=== PATIENT | female | born 1980 | race Asian ===

== ENCOUNTER 2018-08-14 11:38 | Emergency (ER) | payer OTHER, SELFPAY ==
[2018-08-14 11:40] VITALS: BP 128/87; PULSE 81; RESP 18; TEMP 36.6; O2SAT 98
[2018-08-14 12:00] VITALS: BP 133/84; PULSE 84; O2SAT 100
--- NOTE | 2018-08-14 12:06 | ED.ABDPAIN ---
HPI - Abdominal Pain <Izabela Dubon PA-C - Last Filed: 08/14/18 19:11> General Chief Complaint: Abdominal Pain Stated Complaint: States abdominal pain x3days, throat constricted Time Seen by Provider: 08/14/18 11:53 Source: patient and family Mode of arrival: ambulatory Limitations: no limitations History of Present Illness HPI narrative: This 38-year-old female comes to ED due to 3 day history of mid upper abdominal pain. She awoke with it on morning. She states it is there constantly, but gets worse after eating regardless of type of food, also worse if she is walking around for awhile. It improves if she sits for a little while. She denies any change with drinking fluids. She states the worse bouts of pain can also occur when she is lying down. She denies any radiation of pain except feels like sometimes it goes through to her back. She denies any chest pain or dyspnea. She has not had any recent illness or cough, no fever, chills, sweats. She denies any nausea or vomiting. She denies any urinary symptoms or hematuria. She denies any bowel changes or blood in the stools. She denies any possibility of . She had panendoscopy 4 years ago for anemia and syncope, does have some chronic abdominal/bladder pain ?painful bladder syndrome?, pain like this before. Pain is not worse today, came in because a family member advised. She is eating and drinking normally Related Data Previous Rx's Medication Instructions Recorded omeprazole 40 mg PO DAILY 14 Days #14 cap 08/14/18 Allergies Allergy/AdvReac Type Severity Reaction Status Date / Time No Known Drug Allergies Allergy Verified 08/14/18 12:39 Review of Systems <Izabela Dubon PA-C - Last Filed: 08/14/18 19:11> Review of Systems ROS Unobtainable: All systems reviewed & are unremarkable except as noted in HPI and below PFSH <Izabela Dubon PA-C - Last Filed: 08/14/18 19:11> Medical History (Updated 08/14/18 @ 14:19 by Izabela Dubon PA-C) Anxiety disorder (Chronic) Chronic bladder pain (Chronic) History of anemia (Chronic) Seasonal allergies (Chronic) History of syncope (Resolved) Surgical History (Updated 08/14/18 @ 12:30 by Izabela Dubon PA-C) S/P colonoscopy (Resolved) Status post endoscopy (Resolved) Social History Smoking Status: Never smoker Social History Smoking Status: Never smoker Exam <Izabela Dubon PA-C - Last Filed: 08/14/18 19:11> Narrative Exam Narrative: GENERAL APPEARANCE: Patient sitting comfortably, in no distress. HEENT: PERRL, EOMI, no scleral icterus, conjunctivae pink NECK: Supple LUNGS: Clear to auscultation bilaterally. HEART: Rate and rhythm regular, normal S1 and S2, no S3 or S4. ABDOMEN: Soft, nondistended, bowel sounds present x 4 quadrants, no masses palpable, no hepatosplenomegaly. mild mid epigastric tenderness without guarding or rebound. no tenderness elsewhere. No CVAT EXTREMITIES: No edema, no cyanosis DERMATOLOGIC: No jaundice or exanthem NEUROLOGIC: Alert and oriented with normal speech and coordination Initial Vital Signs Initial Vital Signs: Vital Signs Temperature 97.8 F 08/14/18 11:40 Pulse Rate 81 08/14/18 11:40 Respiratory Rate 18 08/14/18 11:40 Blood Pressure 128/87 08/14/18 11:40 Pulse Oximetry 98 08/14/18 11:40 <Glenny Martines DO - Last Filed: 08/16/18 23:52> Initial Vital Signs Initial Vital Signs: Vital Signs Temperature 97.8 F 08/14/18 11:40 Pulse Rate 81 08/14/18 11:40 Respiratory Rate 18 08/14/18 11:40 Blood Pressure 128/87 08/14/18 11:40 Pulse Oximetry 98 08/14/18 11:40 Course <Izabela Dubon PA-C - Last Filed: 08/14/18 19:11> Additional Information: Patient has not had any significant change in her pain for days, nor any new symptoms such as vomiting or fever. She feels like pain is similar to gas cramps. Advised trial of PPI, monitoring at home and return if acutely worsening symptoms, otherwise follow up with PCP 1st of next week. She is agreeable Orders Ordered: Discontinued Medications Al Hydrox/Mg Hydrox/Simethicone 20 ml/ Lidocaine HCl 15 ml 0 ml PO NOW ONE Stop: 08/14/18 12:23 Last Admin: 08/14/18 12:40 Dose: 35 ml Vital Signs - 8 hr 08/14/18 11:40 08/14/18 12:00 08/14/18 13:00 Temperature 97.8 F Pulse Rate 81 84 71 Respiratory Rate 18 14 Blood Pressure 128/87 Blood Pressure [Right Arm] 133/84 112/57 L Pulse Oximetry 98 100 100 08/14/18 14:04 08/14/18 14:24 Temperature Pulse Rate 81 79 Respiratory Rate 15 15 Blood Pressure 124/62 Blood Pressure [Right Arm] 124/62 Pulse Oximetry 99 96 <Glenny Martines DO - Last Filed: 08/16/18 23:52> Orders Ordered: Discontinued Medications Al Hydrox/Mg Hydrox/Simethicone 20 ml/ Lidocaine HCl 15 ml 0 ml PO NOW ONE Stop: 08/14/18 12:23 Last Admin: 08/14/18 12:40 Dose: 35 ml Vital Signs - 8 hr 08/14/18 11:40 08/14/18 12:00 08/14/18 13:00 Temperature 97.8 F Pulse Rate 81 84 71 Respiratory Rate 18 14 Blood Pressure 128/87 Blood Pressure [Right Arm] 133/84 112/57 L Pulse Oximetry 98 100 100 08/14/18 14:04 08/14/18 14:24 Temperature Pulse Rate 81 79 Respiratory Rate 15 15 Blood Pressure 124/62 Blood Pressure [Right Arm] 124/62 Pulse Oximetry 99 96 MDM - Abdominal Pain <Izabela Dubon PA-C - Last Filed: 08/14/18 19:11> Lab Data Attestation: I reviewed the patient's lab results. Result diagrams: 08/14/18 12:45 08/14/18 12:45 Lab Results 08/14/18 08/14/18 Range/Units 12:45 12:45 WBC 7.1 (4.5-11.0) X10^3/uL RBC 4.63 (4.0-5.2) X10^6/uL Hgb 13.9 (12.0-16.0) g/dL Hct 41.4 (36-46) % MCV 89.5 (80-100) fL MCH 30.0 (26-34) PG MCHC 33.5 (30-36) % RDW 12.5 (11.6-14.8) % Plt Count 245 (150-400) X10^3/uL Neut % (Auto) 74.7 (50-75) % Lymph % (Auto) 18.3 L (25-40) % Hart % (Auto) 5.8 (3-14) % Eos % (Auto) 0.3 L (2-4) % Baso % (Auto) 0.9 (0-2) % Neut # (Auto) 5300 (2097-9586) /uL Lymph # (Auto) 1300 (0298-0916) /uL Hart # (Auto) 400 (0-900) /uL Eos # (Auto) 0 (0-450) /uL Baso # (Auto) 100 (0-100) /uL Sodium 137 (137-145) mmol/L Potassium 4.1 (3.4-5.1) mmol/L Chloride 103 (98-107) mmol/L Carbon Dioxide 25 (22-32) mmol/L BUN 12 (7-17) mg/dL Creatinine 0.60 (0.52-1.04) mg/dL Estimated GFR > 60.0 (>60) mL/min BUN/Creatinine Ratio 20.0 (6-22) Glucose 86 (70-100) mg/dL Calcium 9.1 (8.4-10.2) mg/dL Total Bilirubin 0.5 (0.2-1.3) mg/dL AST 26 (14-36) IU/L ALT 28 (9-52) IU/L Alkaline Phosphatase 60 (38-126) U/L Troponin I < 0.012 (0.01-0.034) ng/mL Total Protein 7.4 (6.3-8.2) g/dL Albumin 4.4 (3.5-5.0) g/dL Globulin 3.0 (1.7-4.1) g/dL Albumin/Globulin Ratio 1.5 (1.0-2.8) Lipase 50 (23-300) U/L Point of care testing: Point of Care Testing Test Results Negative Urine Dip Bedside Urine Glucose Negative Bedside Urine Bilirubin - Negative Bedside Urine Ketone - Negative Urine Specific [place] 1.015 Bedside Urine Occult Blood - Negative Bedside Urine pH 6.0 Bedside Urine Protein - Negative Bedside Urine Urobilinogen - Negative Bedside Urine Nitrite - Negative Bedside Urine Leukocytes - Negative Esterase Imaging Data US - abdomen: Radiologist's impression: [address] [address] Ultrasound Report Signed Patient: Yoly Hopkins FMR#: [id number] : 1980Acct:[id number] Age/Sex: 38 / FDate of Service: 08/14/18 Loc: ED Accession Number: [id number] Procedure: US abdomen complete Ordering Provider: Izabela Dubon P.A-C PROCEDURE: US ABDOMEN COMPLETE INDICATIONS: 3 DAY EPIGASTRIC PAIN, POST PRANDIAL AND EXERTIONAL TECHNIQUE: Real-time scanning was performed of the abdominal and retroperitoneal organs, with image documentation. COMPARISON: None. FINDINGS: Liver: Liver is normal in size and homogeneous in echotexture. Main portal vein appears patent. Gallbladder: No cholelithiasis or ivy-cholecystic fluid. No gallbladder wall thickening. Negative sonographic Boo's sign. Biliary ducts: Intrahepatic bile ducts are non-dilated. Extrahepatic bile duct caliber measures 3 mm. Pancreas: Visualized portions of the pancreatic head are sonographically normal. Pancreatic body and tail are obscured by overlying bowel gas. Spleen: Spleen is normal in size and homogeneous in echotexture. Kidneys: Kidneys are normal in size and echotexture. Right kidney measures 10.0 cm cm long; left kidney measures 9.5 cm long. Mildly prominent right renal pelvis at 6 mm in size, with no convincing hydronephrosis or nephrolithiasis bilaterally. No solid masses. Aorta: Visualized aorta is normal in caliber at less than 3 cm. Proximal abdominal aorta measures 1.6 cm. Mid abdominal aorta measures 1.4 cm. Distal abdominal aorta measures 1.3 cm. Iliacs: Right proximal common iliac artery measures 0.8 cm. Left proximal common iliac artery measures 0.9 cm. IVC: Intrahepatic inferior vena cava is patent. Miscellaneous: No free abdominal fluid. IMPRESSION: No ultrasound evidence of acute cholecystitis. Common bile duct measures within normal limits for size. Dictated by: Pablito House M.D. on 08/14/2018 at 13:45 Approved by: Pablito House M.D. on 08/14/2018 at 13:51 ECG Data Attestation: I personally reviewed and interpreted this ECG as follows: (Normal sinus rhythm with rate 62, normal axis) Prior ECG tracings: not available for review <Glenny Martines DO - Last Filed: 08/16/18 23:52> Lab Data Lab Results 08/14/18 08/14/18 Range/Units 12:45 12:45 WBC 7.1 (4.5-11.0) X10^3/uL RBC 4.63 (4.0-5.2) X10^6/uL Hgb 13.9 (12.0-16.0) g/dL Hct 41.4 (36-46) % MCV 89.5 (80-100) fL MCH 30.0 (26-34) PG MCHC 33.5 (30-36) % RDW 12.5 (11.6-14.8) % Plt Count 245 (150-400) X10^3/uL Neut % (Auto) 74.7 (50-75) % Lymph % (Auto) 18.3 L (25-40) % Hart % (Auto) 5.8 (3-14) % Eos % (Auto) 0.3 L (2-4) % Baso % (Auto) 0.9 (0-2) % Neut # (Auto) 5300 (9565-9907) /uL Lymph # (Auto) 1300 (5342-3986) /uL Hart # (Auto) 400 (0-900) /uL Eos # (Auto) 0 (0-450) /uL Baso # (Auto) 100 (0-100) /uL Sodium 137 (137-145) mmol/L Potassium 4.1 (3.4-5.1) mmol/L Chloride 103 (98-107) mmol/L Carbon Dioxide 25 (22-32) mmol/L BUN 12 (7-17) mg/dL Creatinine 0.60 (0.52-1.04) mg/dL Estimated GFR > 60.0 (>60) mL/min BUN/Creatinine Ratio 20.0 (6-22) Glucose 86 (70-100) mg/dL Calcium 9.1 (8.4-10.2) mg/dL Total Bilirubin 0.5 (0.2-1.3) mg/dL AST 26 (14-36) IU/L ALT 28 (9-52) IU/L Alkaline Phosphatase 60 (38-126) U/L Troponin I < 0.012 (0.01-0.034) ng/mL Total Protein 7.4 (6.3-8.2) g/dL Albumin 4.4 (3.5-5.0) g/dL Globulin 3.0 (1.7-4.1) g/dL Albumin/Globulin Ratio 1.5 (1.0-2.8) Lipase 50 (23-300) U/L Point of care testing: Point of Care Testing Test Results Negative Urine Dip Bedside Urine Glucose Negative Bedside Urine Bilirubin - Negative Bedside Urine Ketone - Negative Urine Specific [place] 1.015 Bedside Urine Occult Blood - Negative Bedside Urine pH 6.0 Bedside Urine Protein - Negative Bedside Urine Urobilinogen - Negative Bedside Urine Nitrite - Negative Bedside Urine Leukocytes - Negative Esterase Discharge Plan Departure Patient Disposition: Home Clinical Impression: Continuous epigastric pain Discharge Date/Time: 08/14/18 14:25 Interventions: ED Discharge Assessment Last Done: 08/14/18 14:24 Instructions: DI for Epigastric Pain Activity Restrictions/Additional Instructions: Please return as we discussed if you have any acutely worsening symptoms, or new symptoms such as fever or vomiting. Otherwise, please take the acid medicine omeprazole once daily about 30-45 minutes before a meal. I have sent this to your pharmacy for you. 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 Eat small amounts of bland food every few hours instead of large meals. Please follow-up with your PCP early next week. You may need further testing as we talked about if your symptoms are not improving. There was no explanation found on your lab work or ultrasound today to explain your pain. Prescriptions: New omeprazole 40 mg capsule,delayed release(DR/EC) 40 mg PO DAILY 14 Days Qty: 14 RF: 0 [facility] <Glenny Martines DO - Last Filed: 08/16/18 23:52> Cosign ED Attending Stan Attestation: I was immediately available in the department for consultation. Documentation has been reviewed. I agree with assessment and plan.
--- NOTE | 2018-08-14 12:22 | DI.US.S_ITS ---
PROCEDURE: US ABDOMEN COMPLETE INDICATIONS: 3 DAY EPIGASTRIC PAIN, POST PRANDIAL AND EXERTIONAL TECHNIQUE: Real-time scanning was performed of the abdominal and retroperitoneal organs, with image documentation. COMPARISON: None. FINDINGS: Liver: Liver is normal in size and homogeneous in echotexture. Main portal vein appears patent. Gallbladder: No cholelithiasis or ivy-cholecystic fluid. No gallbladder wall thickening. Negative sonographic Boo's sign. Biliary ducts: Intrahepatic bile ducts are non-dilated. Extrahepatic bile duct caliber measures 3 mm. Pancreas: Visualized portions of the pancreatic head are sonographically normal. Pancreatic body and tail are obscured by overlying bowel gas. Spleen: Spleen is normal in size and homogeneous in echotexture. Kidneys: Kidneys are normal in size and echotexture. Right kidney measures 10.0 cm cm long; left kidney measures 9.5 cm long. Mildly prominent right renal pelvis at 6 mm in size, with no convincing hydronephrosis or nephrolithiasis bilaterally. No solid masses. Aorta: Visualized aorta is normal in caliber at less than 3 cm. Proximal abdominal aorta measures 1.6 cm. Mid abdominal aorta measures 1.4 cm. Distal abdominal aorta measures 1.3 cm. Iliacs: Right proximal common iliac artery measures 0.8 cm. Left proximal common iliac artery measures 0.9 cm. IVC: Intrahepatic inferior vena cava is patent. Miscellaneous: No free abdominal fluid. IMPRESSION: No ultrasound evidence of acute cholecystitis. Common bile duct measures within normal limits for size. Dictated by: Pablito House M.D. on 08/14/2018 at 13:45 Approved by: Pablito House M.D. on 08/14/2018 at 13:51
--- NOTE | 2018-08-14 12:25 | ED_ITS ---
HPI - Abdominal Pain <Izabela Dubon PA-C - Last Filed: 08/14/18 19:11> General Chief Complaint: Abdominal Pain Stated Complaint: States abdominal pain x3days, throat constricted Time Seen by Provider: 08/14/18 11:53 Source: patient and family Mode of arrival: ambulatory Limitations: no limitations History of Present Illness HPI narrative: This 38-year-old female comes to ED due to 3 day history of mid upper abdominal pain. She awoke with it on morning. She states it is there constantly, but gets worse after eating regardless of type of food, also worse if she is walking around for awhile. It improves if she sits for a little while. She denies any change with drinking fluids. She states the worse bouts of pain can also occur when she is lying down. She denies any radiation of pain except feels like sometimes it goes through to her back. She denies any chest pain or dyspnea. She has not had any recent illness or cough, no fever, chills, sweats. She denies any nausea or vomiting. She denies any urinary symptoms or hematuria. She denies any bowel changes or blood in the stools. She denies any possibility of . She had panendoscopy 4 years ago for anemia and syncope, does have some chronic abdominal/bladder pain ?painful bladder syndrome?, pain like this before. Pain is not worse today, came in because a family member advised. She is eating and drinking normally Related Data Previous Rx's Medication Instructions Recorded omeprazole 40 mg PO DAILY 14 Days #14 cap 08/14/18 Allergies Allergy/AdvReac Type Severity Reaction Status Date / Time No Known Drug Allergies Allergy Verified 08/14/18 12:39 Review of Systems <Izabela Dubon PA-C - Last Filed: 08/14/18 19:11> Review of Systems ROS Unobtainable: All systems reviewed & are unremarkable except as noted in HPI and below PFSH <Izabela Dubon PA-C - Last Filed: 08/14/18 19:11> Medical History (Updated 08/14/18 @ 14:19 by Izabela Dubon PA-C) Anxiety disorder (Chronic) Chronic bladder pain (Chronic) History of anemia (Chronic) Seasonal allergies (Chronic) History of syncope (Resolved) Surgical History (Updated 08/14/18 @ 12:30 by Izabela Dubon PA-C) S/P colonoscopy (Resolved) Status post endoscopy (Resolved) Social History Smoking Status: Never smoker Social History Smoking Status: Never smoker Exam <Izabela Dubon PA-C - Last Filed: 08/14/18 19:11> Narrative Exam Narrative: GENERAL APPEARANCE: Patient sitting comfortably, in no distress. HEENT: PERRL, EOMI, no scleral icterus, conjunctivae pink NECK: Supple LUNGS: Clear to auscultation bilaterally. HEART: Rate and rhythm regular, normal S1 and S2, no S3 or S4. ABDOMEN: Soft, nondistended, bowel sounds present x 4 quadrants, no masses palpable, no hepatosplenomegaly. mild mid epigastric tenderness without guarding or rebound. no tenderness elsewhere. No CVAT EXTREMITIES: No edema, no cyanosis DERMATOLOGIC: No jaundice or exanthem NEUROLOGIC: Alert and oriented with normal speech and coordination Initial Vital Signs Initial Vital Signs: Vital Signs Temperature 97.8 F 08/14/18 11:40 Pulse Rate 81 08/14/18 11:40 Respiratory Rate 18 08/14/18 11:40 Blood Pressure 128/87 08/14/18 11:40 Pulse Oximetry 98 08/14/18 11:40 <Glenny Martines DO - Last Filed: 08/16/18 23:52> Initial Vital Signs Initial Vital Signs: Vital Signs Temperature 97.8 F 08/14/18 11:40 Pulse Rate 81 08/14/18 11:40 Respiratory Rate 18 08/14/18 11:40 Blood Pressure 128/87 08/14/18 11:40 Pulse Oximetry 98 08/14/18 11:40 Course <Izabela Dubon PA-C - Last Filed: 08/14/18 19:11> Additional Information: Patient has not had any significant change in her pain for days, nor any new symptoms such as vomiting or fever. She feels like pain is similar to gas cramps. Advised trial of PPI, monitoring at home and return if acutely worsening symptoms, otherwise follow up with PCP 1st of next week. She is agreeable Orders Ordered: Discontinued Medications Al Hydrox/Mg Hydrox/Simethicone 20 ml/ Lidocaine HCl 15 ml 0 ml PO NOW ONE Stop: 08/14/18 12:23 Last Admin: 08/14/18 12:40 Dose: 35 ml Vital Signs - 8 hr 08/14/18 11:40 08/14/18 12:00 08/14/18 13:00 Temperature 97.8 F Pulse Rate 81 84 71 Respiratory Rate 18 14 Blood Pressure 128/87 Blood Pressure [Right Arm] 133/84 112/57 L Pulse Oximetry 98 100 100 08/14/18 14:04 08/14/18 14:24 Temperature Pulse Rate 81 79 Respiratory Rate 15 15 Blood Pressure 124/62 Blood Pressure [Right Arm] 124/62 Pulse Oximetry 99 96 <Glenny Martines DO - Last Filed: 08/16/18 23:52> Orders Ordered: Discontinued Medications Al Hydrox/Mg Hydrox/Simethicone 20 ml/ Lidocaine HCl 15 ml 0 ml PO NOW ONE Stop: 08/14/18 12:23 Last Admin: 08/14/18 12:40 Dose: 35 ml Vital Signs - 8 hr 08/14/18 11:40 08/14/18 12:00 08/14/18 13:00 Temperature 97.8 F Pulse Rate 81 84 71 Respiratory Rate 18 14 Blood Pressure 128/87 Blood Pressure [Right Arm] 133/84 112/57 L Pulse Oximetry 98 100 100 08/14/18 14:04 08/14/18 14:24 Temperature Pulse Rate 81 79 Respiratory Rate 15 15 Blood Pressure 124/62 Blood Pressure [Right Arm] 124/62 Pulse Oximetry 99 96 MDM - Abdominal Pain <Izabela Dubon PA-C - Last Filed: 08/14/18 19:11> Lab Data Attestation: I reviewed the patient's lab results. Result diagrams: 08/14/18 12:45 08/14/18 12:45 Lab Results 08/14/18 08/14/18 Range/Units 12:45 12:45 WBC 7.1 (4.5-11.0) X10^3/uL RBC 4.63 (4.0-5.2) X10^6/uL Hgb 13.9 (12.0-16.0) g/dL Hct 41.4 (36-46) % MCV 89.5 (80-100) fL MCH 30.0 (26-34) PG MCHC 33.5 (30-36) % RDW 12.5 (11.6-14.8) % Plt Count 245 (150-400) X10^3/uL Neut % (Auto) 74.7 (50-75) % Lymph % (Auto) 18.3 L (25-40) % Anderson % (Auto) 5.8 (3-14) % Eos % (Auto) 0.3 L (2-4) % Baso % (Auto) 0.9 (0-2) % Neut # (Auto) 5300 (0133-4769) /uL Lymph # (Auto) 1300 (6181-5902) /uL Anderson # (Auto) 400 (0-900) /uL Eos # (Auto) 0 (0-450) /uL Baso # (Auto) 100 (0-100) /uL Sodium 137 (137-145) mmol/L Potassium 4.1 (3.4-5.1) mmol/L Chloride 103 (98-107) mmol/L Carbon Dioxide 25 (22-32) mmol/L BUN 12 (7-17) mg/dL Creatinine 0.60 (0.52-1.04) mg/dL Estimated GFR > 60.0 (>60) mL/min BUN/Creatinine Ratio 20.0 (6-22) Glucose 86 (70-100) mg/dL Calcium 9.1 (8.4-10.2) mg/dL Total Bilirubin 0.5 (0.2-1.3) mg/dL AST 26 (14-36) IU/L ALT 28 (9-52) IU/L Alkaline Phosphatase 60 (38-126) U/L Troponin I < 0.012 (0.01-0.034) ng/mL Total Protein 7.4 (6.3-8.2) g/dL Albumin 4.4 (3.5-5.0) g/dL Globulin 3.0 (1.7-4.1) g/dL Albumin/Globulin Ratio 1.5 (1.0-2.8) Lipase 50 (23-300) U/L Point of care testing: Point of Care Testing Test Results Negative Urine Dip Bedside Urine Glucose Negative Bedside Urine Bilirubin - Negative Bedside Urine Ketone - Negative Urine Specific [place] 1.015 Bedside Urine Occult Blood - Negative Bedside Urine pH 6.0 Bedside Urine Protein - Negative Bedside Urine Urobilinogen - Negative Bedside Urine Nitrite - Negative Bedside Urine Leukocytes - Negative Esterase Imaging Data US - abdomen: Radiologist's impression: [address] [address] Ultrasound Report Signed Patient: Yoly Hopkins FMR#: [id number] : 1980Acct:[id number] Age/Sex: 38 / FDate of Service: 08/14/18 Loc: ED Accession Number: [id number] Procedure: US abdomen complete Ordering Provider: Izabela Dubon P.A-C PROCEDURE: US ABDOMEN COMPLETE INDICATIONS: 3 DAY EPIGASTRIC PAIN, POST PRANDIAL AND EXERTIONAL TECHNIQUE: Real-time scanning was performed of the abdominal and retroperitoneal organs, with image documentation. COMPARISON: None. FINDINGS: Liver: Liver is normal in size and homogeneous in echotexture. Main portal vein appears patent. Gallbladder: No cholelithiasis or ivy-cholecystic fluid. No gallbladder wall thickening. Negative sonographic Boo's sign. Biliary ducts: Intrahepatic bile ducts are non-dilated. Extrahepatic bile duct caliber measures 3 mm. Pancreas: Visualized portions of the pancreatic head are sonographically norm al. Pancreatic body and tail are obscured by overlying bowel gas. Spleen: Spleen is normal in size and homogeneous in echotexture. Kidneys: Kidneys are normal in size and echotexture. Right kidney measures 10.0 cm cm long; left kidney measures 9.5 cm long. Mildly prominent right renal pelvis at 6 mm in size, with no convincing hydronephrosis or nephrolithiasis bilaterally. No solid masses. Aorta: Visualized aorta is normal in caliber at less than 3 cm. Proximal abdominal aorta measures 1.6 cm. Mid abdominal aorta measures 1.4 cm. Distal abdominal aorta measures 1.3 cm. Iliacs: Right proximal common iliac artery measures 0.8 cm. Left proximal common iliac artery measures 0.9 cm. IVC: Intrahepatic inferior vena cava is patent. Miscellaneous: No free abdominal fluid. IMPRESSION: No ultrasound evidence of acute cholecystitis. Common bile duct measures within normal limits for size. Dictated by: Pablito House M.D. on 08/14/2018 at 13:45 Approved by: Pablito House M.D. on 08/14/2018 at 13:51 ECG Data Attestation: I personally reviewed and interpreted this ECG as follows: (Normal sinus rhythm with rate 62, normal axis) Prior ECG tracings: not available for review <Glenny Martines DO - Last Filed: 08/16/18 23:52> Lab Data Lab Results 08/14/18 08/14/18 Range/Units 12:45 12:45 WBC 7.1 (4.5-11.0) X10^3/uL RBC 4.63 (4.0-5.2) X10^6/uL Hgb 13.9 (12.0-16.0) g/dL Hct 41.4 (36-46) % MCV 89.5 (80-100) fL MCH 30.0 (26-34) PG MCHC 33.5 (30-36) % RDW 12.5 (11.6-14.8) % Plt Count 245 (150-400) X10^3/uL Neut % (Auto) 74.7 (50-75) % Lymph % (Auto) 18.3 L (25-40) % Anderson % (Auto) 5.8 (3-14) % Eos % (Auto) 0.3 L (2-4) % Baso % (Auto) 0.9 (0-2) % Neut # (Auto) 5300 (2342-3378) /uL Lymph # (Auto) 1300 (4464-8054) /uL Anderson # (Auto) 400 (0-900) /uL Eos # (Auto) 0 (0-450) /uL Baso # (Auto) 100 (0-100) /uL Sodium 137 (137-145) mmol/L Potassium 4.1 (3.4-5.1) mmol/L Chloride 103 (98-107) mmol/L Carbon Dioxide 25 (22-32) mmol/L BUN 12 (7-17) mg/dL Creatinine 0.60 (0.52-1.04) mg/dL Estimated GFR > 60.0 (>60) mL/min BUN/Creatinine Ratio 20.0 (6-22) Glucose 86 (70-100) mg/dL Calcium 9.1 (8.4-10.2) mg/dL Total Bilirubin 0.5 (0.2-1.3) mg/dL AST 26 (14-36) IU/L ALT 28 (9-52) IU/L Alkaline Phosphatase 60 (38-126) U/L Troponin I < 0.012 (0.01-0.034) ng/mL Total Protein 7.4 (6.3-8.2) g/dL Albumin 4.4 (3.5-5.0) g/dL Globulin 3.0 (1.7-4.1) g/dL Albumin/Globulin Ratio 1.5 (1.0-2.8) Lipase 50 (23-300) U/L Point of care testing: Point of Care Testing Test Results Negative Urine Dip Bedside Urine Glucose Negative Bedside Urine Bilirubin - Negative Bedside Urine Ketone - Negative Urine Specific [place] 1.015 Bedside Urine Occult Blood - Negative Bedside Urine pH 6.0 Bedside Urine Protein - Negative Bedside Urine Urobilinogen - Negative Bedside Urine Nitrite - Negative Bedside Urine Leukocytes - Negative Esterase Discharge Plan Departure Patient Disposition: Home Clinical Impression: Continuous epigastric pain Discharge Date/Time: 08/14/18 14:25 Interventions: ED Discharge Assessment Last Done: 08/14/18 14:24 Instructions: DI for Epigastric Pain Activity Restrictions/Additional Instructions: Please return as we discussed if you have any acutely worsening symptoms, or new symptoms such as fever or vomiting. Otherwise, please take the acid medicine omeprazole once daily about 30-45 minutes before a meal. I have sent this to your pharmacy for you. Also hop picker some [id number] liquid antacid such as Maalox or Mylanta, and try this when your symptoms get worse to see if it helps. Eat small amounts of bland food every few hours instead of large meals. Please follow-up with your PCP early next week. You may need further testing as we talked about if your symptoms are not improving. There was no explanation found on your lab work or ultrasound today to explain your pain. Prescriptions: New omeprazole 40 mg capsule,delayed release(DR/EC) 40 mg PO DAILY 14 Days Qty: 14 RF: 0 Referrals: [facility] [Provider Group] <Glenny aMrtines DO - Last Filed: 08/16/18 23:52> Cosign ED Attending Stan Attestation: I was immediately available in the department for consultation. Documentation has been reviewed. I agree with assessment and plan.
[2018-08-14] MEDS: MAG HYDROX/ALUMINUM/SIMETH SUS 20 ML, LIDOCAINE VISCOUS 2% 15 ML PO (12:40)
[2018-08-14 12:56] LABS: Add Manual Diff / Slide Review NO; Basophils Absolute Auto 100 /uL (0-100); Basophils Percent Auto 0.9 % (0-2); Eosinophils Absolute Auto 0 /uL (0-450); Eosinophils Percent Auto 0.3 % (2-4); Hematocrit 41.4 % (36-46); Hemoglobin 13.9 g/dL (12.0-16.0); Lymphocytes Absolute Auto 1300 /uL (1100-4500); Lymphocytes Percent Auto 18.3 % (25-40); Mean Corpuscular HGB Conc 33.5 % (30-36); Mean Corpuscular Volume 89.5 fL (80-100); Monocytes Absolute Auto 400 /uL (0-900); Monocytes Percent Auto 5.8 % (3-14); Neutrophils Absolute Auto 5300 /uL (1500-7000); Neutrophils Percent Auto 74.7 % (50-75); Platelet Count 245 X10^3/uL (150-400); Red Blood Cell Count 4.63 X10^6/uL (4.0-5.2); Red Cell Distribution Width 12.5 % (11.6-14.8); White Blood Cell Count 7.1 X10^3/uL (4.5-11.0)
[2018-08-14 13:00] VITALS: BP 112/57; PULSE 71; RESP 14; O2SAT 100
[2018-08-14 13:23] LABS: Alanine Aminotransferase 28 IU/L (9-52); Albumin 4.4 g/dL (3.5-5.0); Albumin Globulin Ratio 1.5 (1.0-2.8); Alkaline Phosphatase 60 U/L (38-126); Aspartate Aminotransferase 26 IU/L (14-36); Bilirubin Total 0.5 mg/dL (0.2-1.3); Blood Urea Nitrogen 12 mg/dL (7-17); Calcium 9.1 mg/dL (8.4-10.2); Carbon Dioxide 25 mmol/L (22-32); Chloride 103 mmol/L (98-107); Estimated Glomerular Filt Rate > 60.0 mL/min (>60); Glucose 86 mg/dL (70-100); HEMOLYSIS < 15 (0-50); Lipase 50 U/L (23-300); Potassium 4.1 mmol/L (3.4-5.1); Sodium 137 mmol/L (137-145); Total Protein 7.4 g/dL (6.3-8.2)
[2018-08-14 13:35] LABS: Troponin I < 0.012 ng/mL (0.01-0.034)
[2018-08-14 14:04] VITALS: BP 124/62; PULSE 81; RESP 15; O2SAT 99
[2018-08-14 14:24] VITALS: BP 124/62; PULSE 79; RESP 15; O2SAT 96
== END 2018-08-14 14:25 | disposition home or self-care (01) ==
PROVIDERS: Emergency Provider Internal Medicine
DX: R10.13 Epigastric pain (principal); M54.9 Dorsalgia, unspecified
CPT/HCPCS: 36415; 76700; 80053; 81003; 81025; 83690; 84484; 85025; 93005; 99283; 99285